=== PATIENT | male | born 1945 | race Caucasian/White ===

== ENCOUNTER 2019-06-14 14:17 | Emergency (ER) | payer MEDICARE, MEDICAID, SELFPAY ==
[2019-06-14 14:26] VITALS: BP 166/74; PULSE 55; RESP 16; TEMP 36.6; O2SAT 95; BMI 31.5
--- NOTE | 2019-06-14 14:27 | ED_ITS ---
Entered by Polina Royal, acting as scribe for Yelena Navarrete MD HPI - Fall General: Chief Complaint: Fall Stated Complaint: LAC TO BACK OF HEAD S/P FALL Time Seen by Provider: 06/14/19 14:28 Source: EMS and RN notes reviewed Mode of arrival: EMS Limitations: altered mental status (dementia) History of Present Illness: HPI Narrative: 74 yo male presents to ED with complaints of patient states he is ok but has a little headache. The patient has a laceration at the back of his head after a fall today. The patient lives at [facility]. EMS states the patient was getting up to use walker and fell, hitting his head. complaint: fall Onset (ago): minute(s) (30) Fall from: standing Fall witnessed: yes, by living facility staff Place fall occurred: intermediate/SNF Loss of consciousness: None Prolonged down time: no Symptoms prior to fall: none Context: tripped/slipped Location of injury: head Severity: mild Quality: dull Associated symptoms-after fall: Reports headache(s); Denies abdominal pain or chest pain Review of Systems Const: Denies: fever or chills Eyes: Denies: change in vision ENMT: Denies: throat pain or mouth pain Card: Denies: chest pain Resp: Denies: shortness of breath GI: Denies: abdominal pain, nausea, vomiting or diarrhea Musc: Denies: back pain or joint pain Skin/Breast: Denies: rash Neuro: Reports: headache Psych: Reports: depression and suicidal ideation Endo: Denies: excessive urination Nate/Lymph: Denies: easy bruising All/Imm: Denies: hives PFSH ED PFSH: Statuses (acute, chronic, etc) shown below reflect problem list status as previously entered and may not be historically accurate Social History Smoking and tobacco status: never smoked Physical Exam Const: COMMON NORMALS: no apparent distress, healthy appearing and alert ORIENTATION/CONSCIOUSNESS: Yes oriented to person; not oriented to place and not oriented to time HENMT: COMMON NORMALS: normocephalic and external nose normal HEAD & SCALP: normocephalic NOSE: external nose normal and no nasal discharge (nasal dischage) OTHER: 1 cm laceration to posterior scalp Eye: COMMON NORMALS: PERRL PUPIL: Yes PERRL Neck/C-Spine: COMMON NORMALS: full ROM and no lymphadenopathy Chest: COMMONS NORMALS: inspection of chest normal Resp: COMMON NORMALS: normal respiratory effort and clear to auscultation bilaterally AUSCULTATION: clear to auscultation bilaterally Cardio: COMMON NORMALS: regular rate and regular rhythm RATE: regular rate RHYTHM: regular rhythm GI: COMMON NORMALS: soft to palpation PALPATION: Yes soft Extremity: COMMON NORMALS: normal to inspection, full ROM and normal capillary refill Neuro: COMMON NORMALS: moves all extremities SENSORIUM/ORIENTATION: Yes alert, Yes oriented to person, No oriented to place and No oriented to time Psych: COMMON NORMALS: mental status grossly normal and cooperative Skin: COMMON NORMALS: no rashes or lesions noted GENERAL SKIN EXAM: no rashes or lesions noted Course Vital Signs: Vital signs: Vital Signs Temperature 98 F 06/14/19 14:26 Pulse Rate 58 L 06/14/19 16:04 Respiratory Rate 16 06/14/19 16:04 Blood Pressure 147/83 06/14/19 16:04 Pulse Oximetry 95 06/14/19 16:04 MDM - Fall MDM Narrative: Medical decision making narrative: Patient presents here with fall along with a head laceration. Patient is well-appearing here and CT head is normal. Patient's laceration was repaired with pradeep and he is to have the pradeep removed in 5 days. He is return if worsening. Imaging Data^: CT Head: Radiologist's impression: [facility] Final Radiology Report Call: [phone] assistance Online chat: [email or web address] Name: LYNDA KELLY Age: 74Years M Date: 06/14/2019 SSN: -- : 1945 Study: CT HEAD WO Requesting Physician: yelena Navarrete Images: [id number] Add?l Studies: Provided Clinical History: injury Procedure Accession CTDI Vol (mGy) DLP (mGy-cm) CT HEAD WO [id number] 1651.79 Page 1 of 2 PROCEDURE INFORMATION: Exam: CT Head Without Contrast Exam date and time: 06/14/2019 2:27 PM Age: 74 years old Clinical indication: Injury or trauma; Fall; Initial encounter; Blunt trauma (contusions or hematomas); Consciousness not specified; Injury date: 06/14/2019; Injury details: PT fell from a standing position, laceration posterior skull. TECHNIQUE: Imaging protocol: Computed tomography of the head without contrast. Total DLP: 1651.79 mGy-cm Radiation optimization: All CT scans at this facility use at least o fifth ne of these dose optimization techniques: automated exposure control; mA and/or kV adjustment per patient size (includes targeted exams where dose is matched to clinical indication); or iterative reconstruction. COMPARISON: CT head wo con* [id number] 11/28/2016 3:35 PM FINDINGS: Brain: Mild hypoattenuating foci are noted in the anterior lateral ventricular periventricular white matter bilaterally. No intracranial hemorrhage. No mass or acute cortical infarction identified. Ventricles: Prominence of the subarachnoid spaces is consistent with the patient's age of 74 years. Disproportionate enlargement of the lateral ventricles is present with an Pinto ratio of 43.0% (previously 40.4 mm). The anterior third ventricular transverse dimension is 12.2 mm (previously 10.0 mm). The fourth ventricle is normal in size. Bones/joints: Unremarkable. No acute fracture. Sinuses: Visualized sinuses are unremarkable. No fluid levels. Mastoid air cells: The LEFT mastoid pneumatization is partially contracted consistent with prior chronic otomastoiditis changes. LYNDA KELLY Final Radiology Report CONFIDENTIALITY STATEMENT This report is intended only for use by the referring physician, and only in accordance with law. If you received this in error, call [phone]. Page 2 of 2 Orbits: Bilateral prior cataract surgery with lens replacements. Soft tissues: Surgical cutaneous clips superior occiput. IMPRESSION: 1. Disproportionate prominence of the lateral and third ventricles, mild interval increase. Recommend clinical exclusion of symptoms of normal pressure hydrocephalus. Otherwise, age appropriate supratentorial and infratentorial atrophy. 2. Mild chronic white matter microvascular ischemic disease. 3. No acute intracranial injury identified. Thank you for allowing us to participate in the care of your patient. Dictated and Authenticated by: Rogerio Alonso MD 06/14/2019 Discharge Plan Discharge Patient Disposition: Home, Self-Care Clinical Impression: Laceration of head Fall Qualifiers: Encounter type: initial encounter Qualified Code(s): W19.XXXA - Unspecified fall, initial encounter Condition: Stable Prescriptions: No Action Lasix 40 mg Tablet 40 mg PO DAILY RF: 0 acetaminophen 325 mg Tablet 650 mg PO Q4H PRN (Reason: Pain) RF: 0 digoxin 250 mcg (0.25 mg) Tablet 250 mcg PO DAILY RF: 0 Milk of Magnesia 400 mg/5 mL Suspension 30 ml PO DAILY PRN (Reason: Constipation) RF: 0 Flomax 0.4 mg Capsule 0.4 mg PO DAILY RF: 0 Dulcolax (bisacodyl) 10 mg Suppository 10 mg RI DAILY PRN (Reason: Constipation) RF: 0 Fleet Enema 19-7 gram/118 mL Enema 118 ml RI DAILY PRN (Reason: Constipation) RF: 0 aspirin 81 mg Tablet,Chewable 81 mg PO DAILY RF: 0 lisinopril 5 mg Tablet 5 mg PO BEDTIME RF: 0 sertraline 50 mg Tablet 50 mg PO DAILY RF: 0 Major-Prep Hemorrhoidal 0.25-14-74.9 % Ointment 1 applic RI DAILY PRN (Reason: Hemorrhoids) RF: 0 potassium chloride 20 mEq Tablet Extended Release 20 meq PO BID RF: 0 Senna Plus 8.6-50 mg Capsule 1 tab-cap PO BID PRN (Reason: Constipation) RF: 0 Discharge Orders: Discharge Order (Routine); Ordered 06/14/19 Ordered By: Yelena Navarrete Referrals: Yojana Engle MD [Family Provider] - 4-7 days (staple removal) Discharge Diet: Advance as tolerated Discharge Activity: Resume usual activity Patient Instructions: Fall Prevention (ED) Activity Restrictions/Additional Instructions: have pradeep removed in 5 days Coding Level of Care Code ED Machine Featheredger And Reducer for Chg Fwd The documentation recorded by the Genny rodriguez Valerie R accurately reflects the service I personally performed and the decisions made by Rosalba siddiqui Korby, MD Jun 14, 2019 14:17
[2019-06-14 16:04] VITALS: BP 147/83; PULSE 58; RESP 16; O2SAT 95
--- NOTE | 2019-06-14 16:17 | PC.NURSE ---
Sybil wlaters scheduled. Ref number [id number].
--- NOTE | 2019-06-14 19:17 | PC.NURSE ---
Introduced self to patient and initiated vital signs. Pt is A&O x 3 and agreeable. Pt states that the reason for the ER visit today is due to a laceration to back of head which occurred when he fell back after trying to get up earlier today. Pt also complaining of ....... Reassured patient of needs and will continue to monitor. Awaiting provider at bedside.
[2019-06-14 20:07] VITALS: BP 148/94; PULSE 52; RESP 16; O2SAT 91
[2019-06-14 21:07] VITALS: BP 136/67; PULSE 48; RESP 16; O2SAT 90
[2019-06-14 22:07] VITALS: BP 146/89; PULSE 51; RESP 16; O2SAT 91
[2019-06-14 23:07] VITALS: BP 168/84; PULSE 50; RESP 16; O2SAT 90
[2019-06-15 00:09] VITALS: BP 171/113; PULSE 52; RESP 16; O2SAT 93
--- NOTE | 2019-06-15 00:13 | PC.NURSE ---
Patient is resting comfortably.
[2019-06-15 01:03] VITALS: BP 154/76; PULSE 58; RESP 18; O2SAT 90
[2019-06-15 01:55] VITALS: PULSE 154; RESP 20; TEMP 36.4; O2SAT 95
--- NOTE | 2019-06-15 04:45 | PC.NURSE ---
Assisted pt to bedside commode.
--- NOTE | 2019-06-15 06:44 | PC.NURSE ---
Assisted patient to bedside commode / changed underwear.
[2019-06-15 07:00] VITALS: BP 173/113; PULSE 55; RESP 16; O2SAT 96
--- NOTE | 2019-06-15 07:21 | PC.NURSE ---
Report received from off-going nurse at this time. Patient is currently discharged, stable, and awaiting a [employer] ride. Ride was to arrive at 0700 but has called and stated they will be here for fruit or nut picker at 1130am. Will continue to monitor patient until ride arrival. No needs or concerns expressed by patient at this time.
[2019-06-15 08:00] VITALS: BP 187/105; PULSE 50; RESP 14; O2SAT 91
--- NOTE | 2019-06-15 08:03 | PC.NURSE ---
Pt continues to wait in the ER for a ride from [employer]. Patient VS are stable for his baseline. No s/s of distress, pt denies any CP. WIll continue to monitor until ride arrives.
== END 2019-06-15 08:35 | disposition home or self-care (01) ==
PROVIDERS: Emergency Provider Emergency Medicine; Family Provider Family Medicine
DX: S01.91XA Laceration without foreign body of unspecified part of head, initial encounter (principal); W19.XXXA Unspecified fall, initial encounter
CPT/HCPCS: 70450; 99281

== ENCOUNTER 2019-12-10 15:35 | Outpatient (CLI) | payer MEDICARE, MEDICAID, SELFPAY ==
--- NOTE | 2019-12-11 07:34 | ONC FU_ITS ---
Dr. Bay Patient Follow-Up Note Patient: Mike Shipman Unit #: [id number]: 1945 Dicatated By: Franklin Bay M.D.Date of Visit:Dec 10, 2019 Onc Med Follow-up/Prog Note Chief Complaint: Chronic lymphocytic leukemia. History of Present Illness: This is a 74 year-old man with chronic lymphocytic leukemia. He was initially diagnosed in May of 2010. By clinical evaluation, he appeared to have early stage disease, though he was moderately thrombocytopenic at that time and he also had mildly elevated total bilirubin. Bone marrow aspiration/biopsy showed normal cellularity at 60-70%. Megakaryocytes were present in normal numbers. There was no overt lymphoma/leukemia by routine histologic examination, but flow cytometry did show a population of monoclonal B cells comprising 25% of the marrow cellularity, consistent with chronic lymphocytic leukemia. The chromosome analysis was normal. CT of the abdomen/pelvis showed no evidence of intra-or extrahepatic bile duct dilatation. There were scattered foci of decreased attenuation involving both lobes of the liver, typically measuring less than 5 mm. These were too small to characterized but were felt to be most likely small incidental cysts. There was no abnormal lymphadenopathy. 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 I had opted to just been managing him with observation for the chronic lymphocytic leukemia, though a specific cause for the thrombocytopenia was not determined. During followup he had remained stable clinically. He has a history of hypertension and chronic atrial fibrillation. He has had no other cardiac history, to my knowledge. He has mild mental retardation, and he had been a resident at a local long-term. On 11/28/2016 he was admitted to the hospital after falling and sustaining a left hip fracture. He apparently had been having frequent falls leading up to that. On 11/30/2016 he underwent open reduction with intramedullary nailing for a subtrochanteric left femur fracture. He tolerated the surgery well. He was then admitted to [facility] for further recovery. I had seen him for a follow-up visit on 01/16/2017. At that point he was still moderately anemic with hemoglobin 10.2 g. His white blood cell count was actually down somewhat, to 9500, and his platelet count was stable at 102,000. His serum iron studies show transferrin saturation 12%, consistent with iron deficiency. He was then given parenteral iron replacement with infusions of Injectafer on 02/05/2017 and on 02/12/2017. He tolerated it well. He continued observation for the CLL. As of September 2017 his hemoglobin was back up to 12.4 g with white blood cell count just slightly elevated at 10,100. Platelet count was mildly decreased at 96,000. INTERIM HISTORY: On his follow-up visit in April 2018 his hemoglobin had dropped to 10.7 g, and at that point he is also mildly neutropenic. Restaging CT scans on 05/07/2018 showed no significant adenopathy in the chest, abdomen, or pelvis. Liver and spleen both appeared normal. He then underwent bone marrow aspiration/biopsy on 05/26/2018. The overall cellularity was 60% with 14% lymphocytes. Flow cytometry showed a CD5 positive monoclonal B-cell population, consistent with either atypical CLL or mantle cell lymphoma. 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 The standard chromosome analysis showed a stem line with isochromosome for the long arm of chromosome 17 and 40% of cells and a side-lying with isochromosome 17q and trisomy 8 in 20% of cells. Storage iron was noted to be adequate. CBC at that time showed his hemoglobin back up to 13.5 g with hematocrit 41.2%. The white blood cell count was 14,300 with absolute lymphocyte count of 7300 and absolute neutrophil count of 6200. Platelet count was mildly decreased at 94,000. With those findings, he remained on observation/expectant management. He is seen for a scheduled visit. He continues have very limited activity at the senior living. Baseline now just gets up to the commode. His ECOG score is 3. He has good appetite. He has not had fever. He does report having night sweating all the time. He says his breathing is pretty good. He does have some cough. He does not complain of chest pain. He has no GI/ complaints other than some acid reflux. He has no significant joint or bone pain. He reports having occasional headache. He has dysequilibrium when he first gets up. He has no focal neurologic symptoms. Medications: Acetaminophen 2 Tablet (of 325 mg) Oral q 4 hours PRN, Aspirin 1 (325 mg) Tablet Oral b.i.d., Digox 1 Tablet (of 250 mcg) Oral daily, Dulcolax 1 (10 mg) Suppository Rectal PRN, Dulcolax 1 (5 mg) Tablet, enteric coated Oral PRN, Fleet Enema 1 (7-19 gm/118mL) Enema Rectal PRN, Furosemide 1 Tablet (of 40 mg) Oral daily, Lisinopril 1 (5 mg) Tablet Oral at bedtime, Milk of Magnesia 30 mL (of 1200 mg/15mL) Suspension Oral daily PRN, Potassium Chloride ER 2 Tablet (of 20 meq) Tablet, controlled release Oral b.i.d., Preparation H Ointment Rectal daily PRN, Senna S 2 (8.6-50 mg) Tablet Oral b.i.d., Sertraline HCl 1 Tablet (of 50 mg) Oral daily, Tamsulosin HCl 1 Tablet (of 0.4 mg) Capsule Oral at bedtime Allergies: No Known Allergies. Review of Systems: Constitutional - He has very little activity at the senior living. His appetite is good and his weight is up about 6 pounds from last visit. No fevers. He has frequent night sweats. ECOG score is 3, ENMT - He has sinus congestion/drainage. No mouth sores. No sore throat or difficulty swallowing, Hematologic/Lymphatic - He bruises easily, Respiratory - No shortness of breath. He has a cough. No pleuritic pain or hemoptysis, Cardiovascular - No angina pain. No palpitations, Gastrointestinal - No nausea or vomiting. No heartburn or acid reflux. No diarrhea or constipation. No blood in the stool or black stools, Genitourinary (M) - No dysuria or hematuria. No urinary frequency. No urgency or incontinence, Musculoskeletal - No joint or bone pain, Integumentary - No skin complications, Neurologic - He has occasional headaches. He has some dysequilibrium when he first gets up. No numbness or tingling. No other focal neurologic symptoms, Psychiatric - No anxiety or depression. No insomnia. Vital Signs: Performed on Dec 10, 2019 15:51 Height - 72.00 in Weight - 223.9 lbs (HIGH) BSA - 2.24 sq.m BMI - 30.37 (HIGH) Temperature - 98.5 F Pulse - 47 /min (LOW) Respiration - 24 /min BP - 153/78 mm(hg) (HIGH) O2 Sat - 97 % Pain - 0 Physical Examination: Constitutional - He appears generally weak, Eyes - Sclerae nonicteric. Conjunctivae clear, ENMT - No lesions noted in the oral cavity, Hematologic/Lymphatic - No cervical, clavicular, or axillary adenopathy, Respiratory - Lungs are clear with good air movement bilaterally, Cardiovascular - Heart rhythm is irregular. The rate is slow. There is a II/ systolic murmur. There is no gallop or rub noted, Abdomen - Soft. Liver and spleen are not enlarged. There is no abdominal mass or ascites noted and there is no inguinal adenopathy, Extremities - He has 3+ lower extremity edema. There are purpuric lesions on the arms and legs, Neurologic - There are no focal neurologic deficits noted. Lab/Imaging: CBC shows hemoglobin 10.2 g with hematocrit 32.1%. The red cell indices are in the upper normal range. The white blood cell count is 8000 with the diff showing 43% neutrophils, 49% lymphocytes, 5% monocytes, and 2% eosinophils. Comprehensive metabolic showed decreased albumin at 2.9 g/dL. The total bilirubin was slightly elevated at 2.0 mg/dL. The liver enzymes were normal. LDH was normal at 187 U/L. Impression: 1. Patient with chronic lymphocytic leukemia diagnosed by peripheral blood flow cytometry and by bone marrow aspiration/biopsy in 2010. He appeared to have early stage disease, though he has had a mild to moderately severe thrombocytopenia. The cause/clinical significance of the thrombocytopenia was uncertain. Thus far his blood counts have remained stable on observation. His other medical illnesses include: 2. Hypertension. 3. Chronic atrial fibrillation. 4. Mental retardation. On 11/28/2016 he was admitted to the hospital with a traumatic left hip fracture. He underwent open reduction/internal fixation of the fracture on 11/30/2016. He was then transferred to [facility] for further recovery. As of his follow-up visit on 01/16/2017, he was still moderately anemic, and his laboratory studies were consistent with iron deficiency. He was given parenteral iron replacement with infusions of Injectafer on 02/05/2017 and on 02/12/2017. During subsequent follow-up he had remained moderately anemic, though on his follow-up visit in September 2017 his hemoglobin was back up to 12.4 g. As of his follow-up visit in April 2018 it was back down to 10.7 g. His white blood cell count had decline, so that he had become mildly neutropenic. He also continued to have mild thrombocytopenia. He underwent restaging CT scans of the chest, abdomen, and pelvis which showed no significant lymphadenopathy. The liver and spleen also appeared unremarkable. His repeat bone marrow aspiration/biopsy on 05/26/2018 showed an overall cellularity of 60% with 14% lymphocytes. The flow cytometry showed a CD5 positive monotypic B-cell population consistent with CLL or mantle cell lymphoma. 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 The standard chromosome analysis showed a stem line with isochromosome for long arm of chromosome 17 in 40% of cells and a sideline with isochromosome 17q in 20% of cells. Despite those changes, his CBC at that time showed his hemoglobin back up to 13.5 g. The white blood cell count was 14,300 with a an absolute lymphocyte count of 7300 and an absolute neutrophil count of 6200. The platelet count remained just mildly decreased at 94,000. With those findings he remained on observation/expectant management. During follow-up his blood counts had remained stable with just borderline low hemoglobin/hematocrit levels, mild leukocytosis, and mild thrombocytopenia. He had very limited activity, but his overall clinical status appeared stable with no significant progression of the lymphoproliferative disorder. He has now become more anemic again and her also has been some decline in his platelet count. It is uncertain to what extent that may be due to the underlying lymphoproliferative disorder, but there is a possibility that it is now becoming symptomatic. He also now has a slow ventricular response with his atrial fibrillation. Plan: He will be scheduled for additional laboratory studies next week. If the CBC changes persist he ultimately may require repeat bone marrow aspiration/biopsy. In the meantime, the EKG strip will be forwarded to the senior living. Signed By: Franklin Bay M.D. <<Signature on File>>
== END 2019-12-10 15:36 | disposition home or self-care (01) ==
LOC: ONCMED 15:40
PROVIDERS: PCP Family Medicine; Visit Provider Internal Medicine Medical Oncology
DX: C91.10 Chronic lymphocytic leukemia of B-cell type not having achieved remission (principal); D64.9 Anemia, unspecified; D69.6 Thrombocytopenia, unspecified; I10 Essential (primary) hypertension; I48.20 Chronic atrial fibrillation, unspecified; F79 Unspecified intellectual disabilities
CPT/HCPCS: G0463

== ENCOUNTER 2019-12-15 09:35 | Outpatient (CLI) | payer MEDICARE, MEDICAID, SELFPAY ==
[2019-12-15 11:04] LABS: Basophils # 0.1 10^3/uL (0.0-0.1); Basophils % 0.7 %; Eosinophils # 0.2 10^3/uL (0.0-0.8); Eosinophils % 2.1 %; Hematocrit 36.7 % (42.0-52.0); Hemoglobin 11.3 g/dL (11.7-16.6); Lymphocytes # 3.9 10^3/uL (0.8-4.8); Lymphocytes % 41.6 %; Mean Corpuscular HGB Conc 30.8 g/dL (30.0-36.0); Mean Corpuscular Hemoglobin 31.9 pg (28.0-34.0); Mean Corpuscular Volume 103.7 fL (80-94); Mean Platelet Volume 13.2 fL (7.4-10.4); Monocytes # 0.4 10^3/uL (0.2-0.9); Monocytes % 4.7 %; Neutrophils # 4.72 10^3/uL (1.8-7.7); Neutrophils % 50.7 %; Nucleated Red Blood Cells % 0 %; Platelet Count 85 10^3/cmm (130-400); Red Blood Count 3.54 10^6/uL (4.1-5.3); Red Cell Distribution Width 13.4 % (12.1-15.1); White Blood Count 9.3 10^3/uL (4.0-10.0)
[2019-12-15 11:23] LABS: Alanine Aminotransferase 11 U/L (0-41); Albumin Level 3.4 g/dL (3.5-5.2); Alkaline Phosphatase 89 IU/L (40-130); Anion Gap 9.8 (5-19); Aspartate Amino Transferase 18 U/L (0-40); Blood Urea Nitrogen 20 mg/dL (8-23); Calcium 9.4 mg/dL (8.5-10.5); Carbon Dioxide 29 mmol/L (22-29); Chloride 108 mmol/L (98-107); Ferritin 231 ng/mL (30-400); Globulin 2.8 g/dL (1.3-4.6); Glucose 144 mg/dL (65-115); Iron 57 ug/dL (59-158); Lactate Dehydrogenase 232 U/L (135-225); Osmolality Calculated 295 mOsm/kg (285-295); Percent Saturation 33.7 % (20-50); Potassium 3.8 mmol/L (3.5-5.1); Sodium 143 mmol/L (136-145); Total Bilirubin 2.3 mg/dL (0.15-1.2); Total Iron Binding Capacity 169 mcg/dl; Total Protein 6.2 g/dL (6.6-8.7); Unsaturated Iron Binding 112 ug/dL (112-347)
[2019-12-15 11:31] LABS: Slide Review Slide Review Perform
[2019-12-15 11:37] LABS: Vitamin B12 499 pg/mL (232-1245)
[2019-12-15 12:06] LABS: Folate Level 10.3 ng/mL (4.5-32.2)
== END 2019-12-15 09:36 | disposition home or self-care (01) ==
LOC: ONCMED 10:51
PROVIDERS: PCP Family Medicine; Visit Provider Internal Medicine Medical Oncology
DX: C91.10 Chronic lymphocytic leukemia of B-cell type not having achieved remission (principal)
CPT/HCPCS: 80053; 82607; 82728; 82746; 83540; 83550; 83615; 85025

== ENCOUNTER 2019-12-22 09:25 | Outpatient (CLI) | payer MEDICARE, MEDICAID, SELFPAY ==
[2019-12-22 10:04] LABS: Basophils # 0.1 10^3/uL (0.0-0.1); Basophils % 0.7 %; Eosinophils # 0.2 10^3/uL (0.0-0.8); Eosinophils % 2.2 %; Hematocrit 35.5 % (42.0-52.0); Hemoglobin 10.9 g/dL (11.7-16.6); Lymphocytes # 4.1 10^3/uL (0.8-4.8); Lymphocytes % 48.3 %; Mean Corpuscular HGB Conc 30.7 g/dL (30.0-36.0); Mean Corpuscular Hemoglobin 31.9 pg (28.0-34.0); Mean Corpuscular Volume 103.8 fL (80-94); Mean Platelet Volume 12.5 fL (7.4-10.4); Monocytes # 0.3 10^3/uL (0.2-0.9); Monocytes % 3.5 %; Neutrophils # 3.84 10^3/uL (1.8-7.7); Neutrophils % 45.2 %; Nucleated Red Blood Cells % 0 %; Platelet Count 91 10^3/cmm (130-400); Red Blood Count 3.42 10^6/uL (4.1-5.3); Red Cell Distribution Width 13.1 % (12.1-15.1); White Blood Count 8.5 10^3/uL (4.0-10.0)
[2019-12-22 10:19] LABS: Alanine Aminotransferase 8 U/L (0-41); Albumin Level 3.2 g/dL (3.5-5.2); Alkaline Phosphatase 88 IU/L (40-130); Aspartate Amino Transferase 15 U/L (0-40); Blood Urea Nitrogen 20 mg/dL (8-23); Calcium 9.8 mg/dL (8.5-10.5); Carbon Dioxide 28 mmol/L (22-29); Chloride 109 mmol/L (98-107); Globulin 2.4 g/dL (1.3-4.6); Glucose 163 mg/dL (65-115); Lactate Dehydrogenase 190 U/L (135-225); Osmolality Calculated 294 mOsm/kg (285-295); Sodium 142 mmol/L (136-145); Total Bilirubin 2.1 mg/dL (0.15-1.2); Total Protein 5.6 g/dL (6.6-8.7)
[2019-12-22 10:27] LABS: Slide Review Slide Review Perform
== END 2019-12-22 09:26 | disposition home or self-care (01) ==
LOC: ONCMED 09:41
PROVIDERS: PCP Family Medicine; Visit Provider Nurse Practitioner
DX: C91.10 Chronic lymphocytic leukemia of B-cell type not having achieved remission (principal)
CPT/HCPCS: 80053; 83615; 85025

== ENCOUNTER 2020-02-20 19:02 | Emergency (ER) | payer MEDICARE, MEDICAID, SELFPAY ==
--- NOTE | 2020-02-20 19:06 | XRR_ITS ---
PROCEDURE INFORMATION: Exam: XR Chest, 1 View Exam date and time: 02/20/2020 7:08 PM Age: 74 years old Clinical indication: Dyspnea; Additional info: Covid TECHNIQUE: Imaging protocol: XR of the chest Views: 1 view. COMPARISON: CT Chest/Abdomen/Pelvis w IV* 05/07/2018 11:18 AM FINDINGS: Lungs: Bilateral pulmonary infiltrates of large extent on the right and moderate to large on the left. There may be small pleural fluid. Pleural space: No pneumothorax. Heart/Mediastinum: Cardiomegaly. Bones/joints: No acute findings. XR/XR chest 1V portable [id number] IMPRESSION: Bilateral pulmonary infiltrates that can represent edema or infectious/inflammatory process.
[2020-02-20 19:11] VITALS: BP 123/70; PULSE 102; RESP 26; TEMP 37.3; O2SAT 94; BMI 29.8
--- NOTE | 2020-02-20 19:17 | W.ED.AMS ---
HPI - Altered Mental Status General: Chief Complaint: Altered Mental Status Stated Complaint: COVID; AMS Time Seen by Provider: 02/20/20 19:06 Source: patient and EMS Mode of arrival: EMS Limitations: no limitations History of Present Illness: HPI narrative: 74-year-old male sent here from local detention with coronavirus. Patient is in severe distress here and is on a 15 L nonrebreather. Patient is able answer some questions here. I did ask him if he wanted to be intubated he said no. Patient has tachypnea and tachycardia. EMS states that he was 60% oxygen saturation when they arrived to detention and had to place him on the nonrebreather. He is COVID positive and has had fevers. He has had no vomiting or diarrhea. Associated symptoms: Deny depression Review of Systems Const: Reports: fever(s) Eyes: Denies: blurry vision or eye discomfort ENMT: Denies: throat pain or dental pain Card: Denies: chest pain Resp: Reports: dyspnea and productive cough GI: Denies: abdominal pain, nausea, vomiting or diarrhea : Denies: dysuria Musc: Denies: neck pain or back pain Skin/Breast: Denies: rash Neuro: Denies: headache(s) Psych: Denies: depression Nate/Lymph: Denies: easy bruising All/Imm: Denies: urticaria PFSH ED PFSH: Social History Smoking and tobacco status: never smoked Physical Exam Const: COMMON NORMALS: patient oriented x3 GENERAL APPEARANCE: in distress and ill appearing HENMT: COMMON NORMALS: normocephalic and atraumatic HEAD & SCALP: normocephalic and atraumatic Eye: COMMON NORMALS: Equal, round and reactive pupils present and EOMs intact bilaterally PUPIL: Yes Equal, round and reactive pupils present Neck/C-Spine: COMMON NORMALS: full ROM and supple Chest: COMMONS NORMALS: normal inspection of the chest and normal palpation of entire chest wall Resp: EFFORT & INSPECTION: No able to speak in complete sentences, Yes respiratory distress and Yes labored AUSCULTATION: rales Cardio: COMMON NORMALS: regular rhythm and No murmurs present (Cardio) RATE: tachycardic RHYTHM: regular rhythm GI: COMMON NORMALS: Normal to inspection, nondistended, normoactive bowel sounds present, Soft to palpation, non-tender and no masses PALPATION: Yes Soft to palpation Extremity: COMMON NORMALS: normal to inspection and full ROM Neuro: COMMON NORMALS: patient oriented x3, moves all extremities and no focal motor deficits Psych: COMMON NORMALS: mental status grossly normal, Normal thought process present and cooperative THOUGHT PROCESS: Normal thought process present Skin: COMMON NORMALS: no rashes or lesions noted and no wounds GENERAL SKIN EXAM: no rashes or lesions noted Course Vital Signs: Vital signs: Vital Signs Temperature 99.1 F 02/20/20 19:11 Pulse Rate 102 H 02/20/20 19:11 Respiratory Rate 26 H 02/20/20 19:11 Blood Pressure 123/70 02/20/20 19:11 Pulse Oximetry 94 02/20/20 19:11 MDM - Altered Mental Status MDM Narrative: Medical decision making narrative: Patient presents here with COVID pneumonia that is severe in nature. Had a long discussion with patient and informed her we do not have any PICU beds here. He states that he does not want to be intubated and he does not want to be transferred. Patient states that he would likely want to be transferred back to the detention just on oxygen. I spoke to patient's brother Shabbir on request of patient. Shabbir is his next of kin on his paperwork. Had a long discussion with Sahbbir and another 1 of his brothers who both state that they would like him sent back to the detention as well. I did inform him and his brothers that if he goes back to the detention he is likely to pass away as he is very severe. He understands this and his brothers understand this and states that he would rather go to the detention with just oxygen treatment. Did speak to detention and will transfer back there. Imaging Data^: CXR: My impression: Bilateral infiltrates Discharge Plan Discharge Patient Disposition: Home Clinical Impression: Pneumonia due to COVID-19 virus Condition: Stable Prescriptions: No Action Lasix 40 mg Tablet 40 mg PO DAILY RF: 0 acetaminophen 325 mg Tablet 650 mg PO Q4H PRN (Reason: Pain) RF: 0 digoxin 250 mcg (0.25 mg) Tablet 250 mcg PO DAILY RF: 0 Milk of Magnesia 400 mg/5 mL Suspension 30 ml PO DAILY PRN (Reason: Constipation) RF: 0 Flomax 0.4 mg Capsule 0.4 mg PO DAILY RF: 0 Dulcolax (bisacodyl) 10 mg Suppository 10 mg AR DAILY PRN (Reason: Constipation) RF: 0 Fleet Enema 19-7 gram/118 mL Enema 118 ml AR DAILY PRN (Reason: Constipation) RF: 0 aspirin 81 mg Tablet,Chewable 81 mg PO DAILY RF: 0 lisinopril 5 mg Tablet 5 mg PO BEDTIME RF: 0 sertraline 50 mg Tablet 50 mg PO DAILY RF: 0 Major-Prep Hemorrhoidal 0.25-14-74.9 % Ointment 1 applic AR DAILY PRN (Reason: Hemorrhoids) RF: 0 potassium chloride 20 mEq Tablet Extended Release 20 meq PO BID RF: 0 Senna Plus 8.6-50 mg Capsule 1 tab-cap PO BID PRN (Reason: Constipation) RF: 0 Discharge Orders: Discharge Order (Routine); Ordered 02/20/20 Ordered By: Yelena Navarrete Referrals: Yojana Engle MD [Primary Care Provider] - Discharge Diet: Advance as tolerated Discharge Activity: Resume usual activity Patient Instructions: Upper Respiratory Infection (ED) Coding Level of Care Code ED Technical Research Scientist for Chg Fwd Exam Comprehensive
--- NOTE | 2020-02-20 19:38 | PC.NURSE ---
called report to THOMAS Bautista at [facility]
[2020-02-20 19:58] LABS: Basophils % 0.2 %; Hematocrit 38.4 % (42.0-52.0); Lymphocytes # 2.5 10^3/uL (0.8-4.8); Lymphocytes % 20.8 %; Mean Corpuscular HGB Conc 31.3 g/dL (30.0-36.0); Mean Corpuscular Hemoglobin 31.9 pg (28.0-34.0); Mean Corpuscular Volume 102.1 fL (80-94); Mean Platelet Volume 13.6 fL (7.4-10.4); Monocytes # 0.4 10^3/uL (0.2-0.9); Monocytes % 3.2 %; Neutrophils # 9.17 10^3/uL (1.8-7.7); Nucleated Red Blood Cells % 0 %; Platelet Count 77 10^3/cmm (130-400); Red Blood Count 3.76 10^6/uL (4.1-5.3); Red Cell Distribution Width 11.9 % (12.1-15.1); White Blood Count 12.2 10^3/uL (4.0-10.0)
[2020-02-20 20:11] LABS: Lactic Sepsis W/Reflex 3.8 mmol/L (0.5-2.2)
[2020-02-20 20:22] LABS: Fibrinogen 533 mg/dL (174-498)
[2020-02-20 20:23] LABS: Alanine Aminotransferase 24 U/L (0-41); Albumin Level 3.3 g/dL (3.5-5.2); Alkaline Phosphatase 89 IU/L (40-130); Aspartate Amino Transferase 35 U/L (0-40); Blood Urea Nitrogen 43 mg/dL (8-23); C Reactive Protein 36.6 mg/L (0.0-4.9); Calcium 10.1 mg/dL (8.5-10.5); Carbon Dioxide 22 mmol/L (22-29); Chloride 103 mmol/L (98-107); Globulin 3.4 g/dL (1.3-4.6); Glucose 407 mg/dL (65-115); NT Pro B Type Natriuretic Pept 2915 pg/mL (0-125); Osmolality Calculated 308 mOsm/kg (285-295); Sodium 135 mmol/L (136-145); Total Bilirubin 0.8 mg/dL (0.15-1.2); Total Protein 6.7 g/dL (6.6-8.7)
[2020-02-20 20:25] LABS: D Dimer 2.66 ug/mIFEU (0-0.59)
[2020-02-20 20:32] VITALS: PULSE 80; RESP 30; O2SAT 91
[2020-02-20 20:44] LABS: Slide Review Slide Review Perform
[2020-02-20 21:42] LABS: Reflex Lactate Order REFLEX LACTIC ORDERD
== END 2020-02-20 20:55 | disposition home or self-care (01) ==
PROVIDERS: Emergency Provider Emergency Medicine; PCP Family Medicine
DX: U07.1 COVID-19 (principal); J12.89 Other viral pneumonia; Z79.82 Long term (current) use of aspirin
CPT/HCPCS: 12345; 71045; 80053; 83605; 83880; 85025; 85378; 85384; 86140; 87040; 99282; 99283